=== PATIENT | female | born 1970 | race Caucasian/White ===

== ENCOUNTER → 2020-02-27 09:13 | Outpatient (CLI) | payer BC, SELFPAY ==
--- NOTE | ~2020-02-27 | MM_ITS ---
EXAMINATION: MM screen LT diag RT w levi HISTORY: Follow-up breast asymmetries TECHNIQUE: Additional 3-D tomosynthesis images of right were performed and synthetic 2-D images were generated. Screening left mammogram. CAD analysis was submitted and interpreted. COMPARISON: Comparison to multiple prior studies sequentially, with oldest reviewed study dated 09/29. BREAST PARENCHYMAL COMPOSITION: The breasts are extremely dense, which lowers the sensitivity of mamm ography. FINDINGS: There are no suspicious masses, calcifications or architectural distortion in either breast to suggest malignancy. IMPRESSION: 1. No mammographic evidence for malignancy in either breast. 2. Routine yearly screening mammogram and regular clinical breast examination are recommended. BI-RADS Category 1: Negative Reviewed, dictated and finalized at location A. IMPRESSION: 1. No mammographic evidence for malignancy in either breast. 2. Routine yearly screening mammogram and regular clinical breast examination a re recommended. BI-RADS Category 1: Negative
== END ==
PROVIDERS: Visit Provider Obstetrics & Gynecology Gynecology
DX: R92.8 Other abnormal and inconclusive findings on diagnostic imaging of breast (principal); Z12.31 Encounter for screening mammogram for malignant neoplasm of breast
CPT/HCPCS: 77063; 77065; 77067

== ENCOUNTER → 2020-10-21 07:53 | Outpatient (CLI) | payer BC, SELFPAY ==
--- NOTE | ~2020-10-21 | MMUS_ITS ---
EXAMINATION: MM diagnostic branden LT w levi, US breast LT complete HISTORY: 1 cm lump at 7:00 TECHNIQUE: ML, MLO and craniocaudal full field and spot 3-D tomosynthesis images of the left breast w ere performed and synthetic 2-D images were generated. CAD analysis was submitted and interpreted. Hi gh resolution complete left breast ultrasound was performed. COMPARISON: 05/03/2019 bilateral digital screening mammogram BREAST PARENCHYMAL COMPOSITION: The breasts are heterogeneously dense, which may obscure small masses . FINDINGS: MAMMOGRAPHIC FINDINGS: Approximately 3.9 x 8.4 mm opacity is suggested posteriorly in the inner aspect of the mid medial lef t breast at approximately 2:00 position. ULTRASOUND: At the area of clinical complaint of palpable lump at 7:00 5 cm from the nipple there is a parallel c ircumscribed irregular 4 x 9 x 11 mm heterogeneous complex lesion without suspicious shadowing or int ernal vascularity. 7:00 6 cm from nipple: 2.4 x 2.9 mm cyst with through transmission and posterior enhancement 2:00 9 cm from nipple: 2.9 x 5.4 x 4.5 mm parallel circumscribed mildly irregular hypoechoic lesion w ithout internal vascularity or suspicious shadowing, likely corresponding to above described mammogra phic opacity. 2:00 3 cm from nipple: Parallel circumscribed 3.2 x 8.4 x 6 mm hypoechoic lesion without internal vas cularity or posterior shadowing 2:00 2 cm from nipple: 2.6 x 2.5 x 3.3 mm sonolucency with through transmission, likely a small cyst IMPRESSION: 1. Lesions with irregular outline at 7:00 5 cm from the nipple (corresponding to the complaint of pal pable mass) and at 2:00 9 cm from the nipple 2. Ultrasound-guided biopsy is recommended at the 7:00 5 cm from nipple lesion and 2:00 9 cm from nip ple lesion BI-RADS category 4, suspicious findings. Dr. Bear telephoned the report and ultrasound guided biopsy recommendations to GLADYS Delarosa on 10/22/19 21 at 0930 hours Reviewed, dictated and finalized at location A. IMPRESSION: 1. Lesions with irregular outline at 7:00 5 cm from the nipple (corresponding t o the complaint of palpable mass) and at 2:00 9 cm from the nipple 2. Ultrasound-guided biopsy is recommended at the 7:00 5 cm from nipple lesion and 2:00 9 cm from nipple lesion BI-RADS category 4, suspicious findings. Dr. Bear telephoned the report and ultrasound guided biopsy recommendations to GLADYS Delarosa on 10/21/2020 at 0930 hours
== END ==
PROVIDERS: Visit Provider Obstetrics & Gynecology Gynecology
DX: R92.8 Other abnormal and inconclusive findings on diagnostic imaging of breast (principal)
CPT/HCPCS: 76641; 77061; 77065; G0279

== ENCOUNTER 2020-10-24 14:27 | Outpatient (CLI) | payer BC, SELFPAY ==
--- NOTE | 2020-10-24 14:47 | ECHO_ITS ---
Patient Info Name: Ligia Larsen Age: 50 years : 1970 Gender: Female Ht: 64 in Wt: 140 lbs BSA: 1.70 m2 HR: 69 bpm BP: 146 / 94 mmHg Technical Quality: Good Exam Date: 10/24/2020 2:50 PM Exam Location: [facility] Patient Status: Outpatient Admit Date: 10/24/2020 Staff Ordering Physician: Sidney Holman MD Windmill Technician: Mel Liriano RDCS Attending Provider: Sidney Holman MD Referring Physician: River MORRELL; Exam Type: CA echo doppler color flow Study Info Indications R01.1 - Cardiac murmur, unspecified Complete two-dimensional, color flow and Doppler transthoracic echocardiogram is performed. Summary 1. Complete two-dimensional, color flow and Doppler transthoracic echocardiogram is performed. 2. Left ventricular chamber dimension is normal. 3. Left ventricular systolic function is normal, estimated at 65-70%. 4. The left ventricular diastolic function is normal. 5. E/e' 8 is minimally elevated. 6. Global longitudinal strain is normal at -18.8%. 7. Left atrial chamber dimension is mildly enlarged. 8. There is trace aortic valve regurgitation. 9. There is trace mitral valve regurgitation. 10. There is trace tricuspid valve regurgitation. 11. No pulmonary hypertension, estimated pulmonary arterial systolic pressure is 29 mmHg. 12. There is trace pulmonic regurgitation. Left Ventricle E/e' 8 is minimally elevated. Global longitudinal strain is normal at -18.8%. Left ventricular chamber dimension is normal. Left ventricular systolic function is normal, estimated at 65-70%. The left ventricular diastolic function is normal. Right Ventricle Right ventricular chamber dimension is normal. Right ventricular systolic function is normal. Left Atria Left atrial chamber dimension is mildly enlarged. Right Atria Right atrial chamber dimension is normal. Aortic Valve The aortic valve is trileaflet. There is no aortic valve stenosis. There is trace aortic valve regurgitation. Pulmonic Valve There is trace pulmonic regurgitation. Mitral Valve There is no mitral valve stenosis. There is trace mitral valve regurgitation. Tricuspid Valve There is trace tricuspid valve regurgitation. No pulmonary hypertension, estimated pulmonary arterial systolic pressure is 29 mmHg. Pericardium/Pleural There is no pericardial effusion. Inferior Vena Cava Normal inferior vena cava with >50% collapse upon inspiration consistent with normal right atrial pressure, 5 mmHg. Aorta The aortic root size at the sinus of Valsalva is normal. Left Ventricular Outflow Tract Name Value Normal LVOT 2D LVOT Diameter 1.9 cm LVOT Doppler LVOT Peak Gradient 6 mmHg LVOT Mean Gradient 4 mmHg LVOT VTI 27 cm LVOT VTI/AV VTI Ratio 0.8 LVOT Stroke Volume 75 ml LVOT CO 5.4 l/min LVOT CI 3.2 l/min/m2 Pulmonic Valve
== END 2020-10-24 14:28 | disposition home or self-care (01) ==
PROVIDERS: PCP Family Medicine; Visit Provider Family Medicine
DX: R01.1 Cardiac murmur, unspecified (principal)
CPT/HCPCS: 93306

== ENCOUNTER → 2022-01-01 13:49 | Outpatient (CLI) | payer BC, SELFPAY ==
--- NOTE | ~2022-01-01 | MM_ITS ---
EXAMINATION: MM screening branden BI w levi HISTORY: Screening TECHNIQUE: Craniocaudal and mediolateral oblique 3-D tomosynthesis images were obtained and synthetic 2-D images were generated. CAD analysis was submitted and interpreted. COMPARISON: Comparison to multiple prior studies sequentially, with oldest reviewed study dated 12/15. BREAST PARENCHYMAL COMPOSITION: The breasts are extremely dense, which lowers the sensitivity of mamm ography FINDINGS: There is no evidence of suspicious mass, calcification, or architectural distortion to sugg est malignancy in either breast. There has been no suspicious interval change. IMPRESSION: 1. No mammographic evidence of malignancy. 2. Recommend routine screening mammography in one year. BI-RADS Category 1: Negative Reviewed, dictated and finalized at location A.
== END ==
PROVIDERS: PCP Family Medicine; Visit Provider Obstetrics & Gynecology Gynecology
DX: Z12.31 Encounter for screening mammogram for malignant neoplasm of breast (principal)
CPT/HCPCS: 77063; 77067

== ENCOUNTER 2022-04-28 12:09 | Outpatient (CLI) | payer BC, SELFPAY ==
--- NOTE | ~2022-04-28 | MR_ITS ---
MR breast BI wo/w con 04/28/2022 15:58 CDT INDICATION: Extremely dense breast tissue TECHNIQUE: MRI of the breasts perform using standard protocol pre-and post IV contrast with the follo wing sequences: Axial T2 STIR, axial T1, axial vibrant T1 with fat suppression precontrast and multip hasic postcontrast. 13 cc of MultiHance administered intravenously. COMPARISON: Comparison to multiple prior studies sequentially, with oldest reviewed study dated 02/26. FINDINGS: There are no abnormalities on the precontrast sequences. There is moderate background paren chymal enhancement. No enhancing lesions following contrast administration. No areas of enhancement meeting threshold criteria on CAD analysis. No evidence of signal abnormalities in the axillary or internal mammary node distributions. LEFT BREAST: No signal abnormalities on precontrast sequences. There is moderate background parenchy mal enhancement. No enhancing lesions following contrast administration. No areas of enhancement m eeting threshold criteria on CAD analysis. No evidence of signal abnormalities in the axillary or i nternal mammary node distributions.] IMPRESSION: 1: Right breast: Negative. No evidence of malignancy. BI-RADS category 1. Recommend annual mammo graphy follow-up. 2: Left breast: Negative. No evidence of malignancy. BI-RADS category 1. Recommend annual mammogr aphy follow-up. Follow-up MRI may be useful for supplementing mammographic evaluation as clinically indicated. Reviewed, dictated and finalized at location A. IMPRESSION: 1: Right breast: Negative. No evidence of malignancy. BI-RADS category 1. Recommend annual mammography follow-up. 2: Left breast: Negative. No evidence of malignancy. BI-RADS category 1. Re commend annual mammography follow-up. Follow-up MRI may be useful for supplementing mammographic evaluation as clinic ally indicated.
== END 2022-04-28 12:10 | disposition home or self-care (01) ==
PROVIDERS: PCP Family Medicine; Visit Provider Obstetrics & Gynecology Gynecology
DX: R92.2 Inconclusive mammogram (principal)
CPT/HCPCS: 77049; A9577; C8908

== ENCOUNTER → 2022-06-17 13:21 | Outpatient (CLI) | payer BC, SELFPAY ==
--- NOTE | ~2022-06-17 | DEXA_ITS ---
Bone Density Report Name: ERROL ALEXIS Age: 52 Sex: Female Ethnicity: White Date of : 1970 Indication: postmenopausal; screening for osteoporosis; hysterectomy; Referring Provider: LIANA TESFAYE Study: Bone densitometry was performed. Exam Date: June 17, 2022 Accession number: [id number] Bone Density: Region BMD T-score Z-score Classification AP Spine (L1-L4) 1.210 1.5 2.2 Normal Femoral Neck (Left) 0.669 -1.6 -0.9 Osteopenia Total Hip (Left) 0.889 -0.4 0.0 Normal Femoral Neck (Right) 0.663 -1.7 -0.9 Osteopenia Total Hip (Right) 0.821 -1.0 -0.5 Normal Total Hip Mean 0.855 -0.7 -0.3 Normal World Health Organization criteria for BMD impression classify patients as: Normal (T-score at or above -1.0), Osteopenia (T-score between -1.0 and -2.5), or Osteoporosis (T-score at or below -2.5). 10-year Fracture Risk(1): Major Osteoporotic Fracture 4.8% Hip Fracture 0.4% Reported Risk Factors: [place] (), Neck BMD=0.663, BMI=25.8 (1) FRAX(R) Version 3.08. Fracture probability calculated for an untreated patient. Fracture probability may be lower if the patient has received treatment. Clinical Information Provided by Patient: Has used the following medications: Vitamin D, MULTI VITAMIN Has the following medical conditions: Hysterectomy Patient maximum height was 64.5 Menopause Age: 29 Does not regularly consume dairy products Drinks caffeinated beverages Onset of menses at age 14 Number of children 2 Impression: The patient has low bone mass, based on the Right Femoral Neck T-score. The patient has an estimated ten-year risk of hip fracture of 0.4% and an estimated ten-year risk of major fracture of 4.8%, based on the WHO FRAX algorithm. Discussion: BONE DENSITY IS LOW AT ONE OR MORE SKELETAL SITES. This patient's lowest T-score is low at one or more skeletal sites. It meets the World Health Organization's (WHO) criteria for ?low bone mass? (T-score between -1.0 and -2.5). The patient's 10-year risk of fracture as calculated by FRAX is less than the threshold where pharmacological therapy is recommended by the National Osteoporosis Foundation (NOF). However, all treatment decisions require clinical judgment and consideration of individual patient factors, including patient preferences, comorbidities, previous drug use, risk factors not captured in the FRAX model (e.g., frailty, falls, vitamin D deficiency, increased bone turnover, interval significant decline in bone density) and possible under or overestimation of fracture risk by FRAX. The patient should follow a healthful lifestyle (good nutrition with adequate calcium and vitamin D, and appropriate weight-bearing exercise). Follow-Up: Consider repeating this study in 2 to 3 years to reassess this patient's status, or
== END ==
PROVIDERS: PCP Family Medicine; Visit Provider Obstetrics & Gynecology Gynecology
DX: Z78.0 Asymptomatic menopausal state (principal); M85.852 Other specified disorders of bone density and structure, left thigh; M85.851 Other specified disorders of bone density and structure, right thigh
CPT/HCPCS: 77080

== ENCOUNTER 2022-12-04 01:43 | Day surgery (SDC) | payer BC, SELFPAY ==
[2022-11-20 11:46] VITALS: BMI 23.4
[2022-12-04 07:15] VITALS: BP 158/92; PULSE 66; RESP 18; TEMP 36.5; O2SAT 100; BMI 24.8
[2022-12-04] MEDS: LACTATED RINGERS 1,000 ML 150 ML IV CONT (07:27)
--- NOTE | 2022-12-04 07:50 | PM.HPGS ---
History of Present Illness History of Present Illness Consent: Risks, benefits, and alternatives have been discussed and questions answered. Patient agrees to proceed with procedure. Chief complaint: neoplasm screening Narrative: Ligia Larsen is a 52 year old female Presents for screening colonoscopy. Patient's current weight appetite and bowel movements are normal. Patient denies abdominal pain. She has had no bleeding. Family history is noncontributory. Review of Systems Review of Systems: Review of systems noncontributory. 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 Family History Family History (Updated 04/06/19 @ 08:17 by DOCTOR UNKNOWN) Mother Hypertension Family history of hypercholesterolemia Cerebrovascular accident Family history of atrial fibrillation Father Hypertension Family history of hypercholesterolemia Grandparent Family history of malignant neoplasm of bone Family history of malignant neoplasm of breast Diabetes mellitus, Onset Age: 68 Hypertension Acute myocardial infarction, Onset Age: 42 Family history of malignant neoplasm Social History Social History Smoking status: Never smoker Alcohol intake: current Drinks per week: 3 Alcohol use details: on occasion Substance use: never Substance use type: does not use Living arrangements: with family Spiritual care concerns: No Meds Home Medications and Allergies Home Medications Medication Instructions Recorded Confirmed Type ketoconazole 2 % topical cream 1 applic topical BID #30 grams 09/16/21 12/04/22 Rx fluticasone propionate 50 1 spray intranasal BID 10/16/21 12/04/22 History mcg/actuation nasal spray,suspension amlodipine 5 mg tablet 5 mg PO DAILY #90 tabs 12/04/21 12/04/22 Rx escitalopram oxalate 10 mg tablet 10 mg PO DAILY #30 tabs 04/30/22 12/04/22 Rx (Lexapro) cholecalciferol (vitamin D3) 1,250 50,000 unit PO WEEKLY #4 caps 10/16/22 12/04/22 Rx mcg (50,000 unit) capsule Women's Multivitamin 1 tab-cap PO DAILY 11/20/22 12/04/22 History Allergies Allergy/AdvReac Type Severity Reaction Status Date / Time terbinafine Allergy Mild urinary Verified 12/04/22 07:13 issues, nausea Vital Signs Vital Signs - 24 hr 12/04/22 07:15 Temperature 97.7 F Pulse Rate 66 Respiratory Rate 18 Blood Pressure 158/92 H Pulse Oximetry 100 Oxygen Delivery Room Air Exam Narrative: Physical exam reveals patient to be alert. Vital signs stable. HEENT exam is unremarkable. Patient is anicteric. Lungs are clear to auscultation and percussion. Heart is without murmur or extra sounds. Abdomen bowel sounds are present soft nontender with no organomegaly. Digital external rectal exam is normal. Assessment and Plan Assessment and plan (1) Colon cancer screening: Code(s): Z12.11 - Encounter for screening for malignant neoplasm of colon Status: Acute Assessment and Plan: Patient presents for screening colonoscopy. She appears to be at average risk for colon polyps. Further recommendations may be given after endoscopy.
--- NOTE | 2022-12-04 08:13 | WPDANESEPPF ---
Anes - Initial Pre Proc Eval Procedure: Operation Date: 12/04/22 08:30 Proposed Procedures p Screening Colonoscopy - Damián Chan MD Date/Time: 12/04/22 08:13 Surgeon: Damián Chan MD Pre Op Diagnosis: neoplasm screening Patient Data Age: 52 Gender: F Height: 1.65 m Weight: 67.7 kg Last Vital Signs Temp 97.7 F 12/04/22 07:15 Pulse 66 12/04/22 07:15 Resp 18 12/04/22 07:15 BP 158/92 H 12/04/22 07:15 Pulse Ox 100 12/04/22 07:15 O2 Del Method Room Air 12/04/22 07:15 Allergies Allergy/AdvReac Type Severity Reaction Status Date / Time terbinafine Allergy Mild urinary Verified 12/04/22 07:13 issues, nausea Home Medications Medication Instructions Recorded Confirmed Type ketoconazole 2 % topical cream 1 applic topical BID #30 grams 09/16/21 12/04/22 Rx fluticasone propionate 50 1 spray intranasal BID 10/16/21 12/04/22 History mcg/actuation nasal spray,suspension amlodipine 5 mg tablet 5 mg PO DAILY #90 tabs 12/04/21 12/04/22 Rx escitalopram oxalate 10 mg tablet 10 mg PO DAILY #30 tabs 04/30/22 12/04/22 Rx (Lexapro) cholecalciferol (vitamin D3) 1,250 50,000 unit PO WEEKLY #4 caps 10/16/22 12/04/22 Rx mcg (50,000 unit) capsule Women's Multivitamin 1 tab-cap PO DAILY 11/20/22 12/04/22 History Patient hx anesthesia problems: none Family hx anesthesia problems: none Results Review: All pre-operative results and documents have been reviewed as part of the pre-operative evaluation. 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 Family History Family History (Updated 04/06/19 @ 08:17 by DOCTOR UNKNOWN) Mother Hypertension Family history of hypercholesterolemia Cerebrovascular accident Family history of atrial fibrillation Father Hypertension Family history of hypercholesterolemia Grandparent Family history of malignant neoplasm of bone Family history of malignant neoplasm of breast Diabetes mellitus, Onset Age: 68 Hypertension Acute myocardial infarction, Onset Age: 42 Family history of malignant neoplasm Social History Social History Smoking status: Never smoker Alcohol intake: current Drinks per week: 3 Alcohol use details: on occasion Substance use: never Substance use type: does not use Living arrangements: with family Spiritual care concerns: No Anes - Eval Final PreProcedure Day of Procedure 12/04/22 08:13 Patient weight: normal Heart: regular rate and rhythm Lungs: clear to auscultation Airway: Mallampati scale class II Neurological: alert and oriented Last oral intake: >/= 8 hours ASA classification: II Emergent: no Anesthetic plan: proceed Anesthesia type and monitoring: general GIVS and standard monitoring Results Review: All pre-operative results and documents have been reviewed as part of the pre-operative evaluation. Informed Consent: The patient's anesthetic plan and its attendant risks and benefits were discussed with the patient/family/POA. Questions were solicited and answers provided to the satisfaction of the patient/family/POA.
--- NOTE | 2022-12-04 08:24 | WPDANESEPPF ---
Anes - Initial Pre Proc Eval Procedure: Operation Date: 12/04/22 08:30 Proposed Procedures p Screening Colonoscopy - Damián Chan MD Date/Time: 12/04/22 08:24 Surgeon: Damián Chan MD Pre Op Diagnosis: neoplasm screening Patient Data Age: 52 Gender: F Height: 1.65 m Weight: 67.7 kg Last Vital Signs Temp 97.7 F 12/04/22 07:15 Pulse 66 12/04/22 07:15 Resp 18 12/04/22 07:15 BP 158/92 H 12/04/22 07:15 Pulse Ox 100 12/04/22 07:15 O2 Del Method Room Air 12/04/22 07:15 Allergies Allergy/AdvReac Type Severity Reaction Status Date / Time terbinafine Allergy Mild urinary Verified 12/04/22 07:13 issues, nausea Home Medications Medication Instructions Recorded Confirmed Type ketoconazole 2 % topical cream 1 applic topical BID #30 grams 09/16/21 12/04/22 Rx fluticasone propionate 50 1 spray intranasal BID 10/16/21 12/04/22 History mcg/actuation nasal spray,suspension amlodipine 5 mg tablet 5 mg PO DAILY #90 tabs 12/04/21 12/04/22 Rx escitalopram oxalate 10 mg tablet 10 mg PO DAILY #30 tabs 04/30/22 12/04/22 Rx (Lexapro) cholecalciferol (vitamin D3) 1,250 50,000 unit PO WEEKLY #4 caps 10/16/22 12/04/22 Rx mcg (50,000 unit) capsule Women's Multivitamin 1 tab-cap PO DAILY 11/20/22 12/04/22 History Patient hx anesthesia problems: none Family hx anesthesia problems: none Results Review: All pre-operative results and documents have been reviewed as part of the pre-operative evaluation. 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 Family History Family History (Updated 04/06/19 @ 08:17 by DOCTOR UNKNOWN) Mother Hypertension Family history of hypercholesterolemia Cerebrovascular accident Family history of atrial fibrillation Father Hypertension Family history of hypercholesterolemia Grandparent Family history of malignant neoplasm of bone Family history of malignant neoplasm of breast Diabetes mellitus, Onset Age: 68 Hypertension Acute myocardial infarction, Onset Age: 42 Family history of malignant neoplasm Social History Social History Smoking status: Never smoker Alcohol intake: current Drinks per week: 3 Alcohol use details: on occasion Substance use: never Substance use type: does not use Living arrangements: with family Spiritual care concerns: No Anes - Eval Final PreProcedure Day of Procedure 12/04/22 08:24 Patient weight: normal Heart: regular rate and rhythm Lungs: clear to auscultation Airway: Mallampati scale class II Neurological: alert and oriented Last oral intake: >/= 8 hours ASA classification: II Emergent: no Anesthetic plan: proceed Anesthesia type and monitoring: general GIVS and standard monitoring Results Review: All pre-operative results and documents have been reviewed as part of the pre-operative evaluation. Informed Consent: The patient's anesthetic plan and its attendant risks and benefits were discussed with the patient/family/POA. Questions were solicited and answers provided to the satisfaction of the patient/family/POA.
[2022-12-04] MEDS: SIMETHICONE ORAL SUSPENSION 20 MG/0.3 ML 30 ML BOTTLE 0.6 ML IRRIGATION (08:51)
[2022-12-04 09:02] VITALS: BP 98/66; PULSE 64; RESP 16; O2SAT 100
[2022-12-04 09:12] VITALS: BP 135/77; PULSE 66; RESP 18; O2SAT 100
[2022-12-04 09:22] VITALS: BP 148/86; PULSE 62; RESP 18; O2SAT 99
== END 2022-12-04 09:30 | disposition home or self-care (01) ==
PROVIDERS: PCP Family Medicine; Visit Provider Internal Medicine Gastroenterology
PROC: 0DJD8ZZ Inspection of Lower Intestinal Tract, Via Natural or Artificial Opening Endoscopic (ICD-10-PCS; CPT 45378; principal; 2022-12-04 08:30)
DX: Z12.11 Encounter for screening for malignant neoplasm of colon (principal); D12.5 Benign neoplasm of sigmoid colon; K57.30 Diverticulosis of large intestine without perforation or abscess without bleeding; K64.8 Other hemorrhoids; E53.8 Deficiency of other specified B group vitamins; R01.1 Cardiac murmur, unspecified; F41.9 Anxiety disorder, unspecified; F32.A Depression, unspecified
CPT/HCPCS: 45385; 88305; J2704; J7120

== ENCOUNTER 2023-07-14 16:16 | Outpatient (CLI) | payer BC, SELFPAY ==
--- NOTE | ~2023-07-14 | MM_ITS ---
EXAMINATION: MM screening branden BI w levi HISTORY: Screening mammogram TECHNIQUE: Craniocaudal, rotated lateral craniocaudal and mediolateral oblique 3-D tomosynthesis imag es were obtained and synthetic 2-D images were generated. Bilateral rotated lateral CC views. CAD anibal lysis was submitted and interpreted. COMPARISON: 04/28/2022 MR breast examination, reported negative 6. I bilateral screening mammogram 10/21/2020 diagnostic left mammogram and complete left breast ultrasound examination 02/27/2020 diagnostic left mammogram 05/15/2019 diagnostic right mammogram and limited right breast ultrasound examination 05/03/2019 bilateral screening mammogram BREAST PARENCHYMAL COMPOSITION: The breasts are heterogeneously dense, which may obscure small masses . FINDINGS: Biopsy marker is noted on each side; history of prior bilateral benign breast biopsies. The re is no evidence of suspicious mass, calcification, or architectural distortion to suggest malignanc y in either breast. There has been no suspicious interval change. IMPRESSION: 1. No mammographic evidence of malignancy. 2. Recommend routine screening mammography in one year. BI-RADS Category 1: Negative Reviewed, dictated and finalized at location A. NCIAL PROCESSING CLERK
== END 2023-07-14 16:17 | disposition home or self-care (01) ==
LOC: ANHIMG 16:21
PROVIDERS: PCP Family Medicine; Visit Provider Obstetrics & Gynecology Gynecology
DX: Z12.31 Encounter for screening mammogram for malignant neoplasm of breast (principal)
CPT/HCPCS: 77063; 77067

== ENCOUNTER 2024-07-26 13:39 | Outpatient (CLI) | payer BC, SELFPAY ==
--- NOTE | ~2024-07-26 | MM_ITS ---
EXAMINATION: MM screening branden BI w levi HISTORY: Screening TECHNIQUE: Craniocaudal and mediolateral oblique 3-D tomosynthesis images were obtained and synthetic 2-D images were generated. CAD analysis was submitted and interpreted. COMPARISON: Comparison to multiple prior studies sequentially, with oldest reviewed study dated 04/18. BREAST PARENCHYMAL COMPOSITION: Dense: The breasts are heterogeneously dense, which may obscure small masses FINDINGS: There is no evidence of suspicious mass, calcification, or architectural distortion to sugg est malignancy in either breast. There has been no suspicious interval change. IMPRESSION: 1. No mammographic evidence of malignancy. 2. Recommend routine screening mammography in one year. BI-RADS Category 1: Negative Reviewed, dictated and finalized at location B. IFICATION WRITER
== END 2024-07-26 13:40 | disposition home or self-care (01) ==
LOC: CHSIMG 13:42
PROVIDERS: PCP Family Medicine; Visit Provider Obstetrics & Gynecology Gynecology
DX: Z12.31 Encounter for screening mammogram for malignant neoplasm of breast (principal)
CPT/HCPCS: 77063; 77067

== ENCOUNTER 2025-02-09 14:34 | Outpatient (CLI) | payer BC, SELFPAY ==
--- NOTE | ~2025-02-09 | MR_ITS ---
MRI of the right ankle Clinical history: Plantar fasciitis Technique: Coronal proton-density and proton-density fat-sat images, axial proton-density and proton- density fat-sat images, and sagittal proton-density and proton-density fat-sat images were acquired. Findings: Syndesmotic ligaments are intact. Anterior and posterior talofibular ligaments, and calcane ofibular ligament appear intact. Deltoid ligament intact. Medial flexor tendons, peroneus longus tendon, anterior extensor tendons, and Achilles tendon are int act. Questionable longitudinal split tear focally of the peroneus brevis tendon at the level of the l ateral malleolus tip. There is no osteochondral lesion of the talar dome. Bone marrow signals and joint spaces are intact. There is a small to moderate tibiotalar joint effusion, nonspecific. There is focal tear of the origin of the plantar fascia at the calcaneal origin site, surrounding sof t tissue edema and thickening. Impression: Plantar fasciitis, as detailed above. There is prominent soft tissue edema about the origin of the pl vianca fascia with focal tearing centrally. Questionable focal longitudinal split tear of the peroneus brevis tendon. Reviewed, dictated and finalized at location . Impression: Plantar fasciitis, as detailed above. There is prominent soft tissue edema abou t the origin of the plantar fascia with focal tearing centrally. Questionable focal longitudinal split tear of the peroneus brevis tendon.
== END 2025-02-09 14:35 | disposition home or self-care (01) ==
PROVIDERS: PCP Family Medicine; Visit Provider Podiatrist Foot & Ankle Surgery
DX: M72.2 Plantar fascial fibromatosis (principal)
CPT/HCPCS: 73721

== ENCOUNTER 2025-04-27 02:39 | Day surgery (SDC) | payer BC, SELFPAY ==
[2025-04-20 14:12] VITALS: BMI 25.7
--- NOTE | 2025-04-20 14:13 | SUR.PREOP ---
[facility] has started construction of its new state of the art ER which will open Spring 2026. With this, we anticipate parking may be a challenge for some our surgical patients and families. Parking spaces are limited but are available for all Surgical, obstetrics, and ER patients sharing this lot. If you arrive and find you are having a hard time finding a parking space, please note that we understand the challenges, please drive around the hospital and park near Hospital Entrance 1. When you enter this entrance, you can ask a volunteer to direct or take you back to the surgical waiting area to check in. We appreciate everyone?s understanding of these expected challenges while we build for your future. Report to the Outpatient Waiting Room, entrance under the green pavilion located off [address], at time _930am on date _04/27/25 . Planned Procedure Time: __1130 .? Time changes happen often and if your time is changed the preop area will call you the afternoon before. - You and your visitor will be asked to self-screen and do not enter if you have any COVID symptoms. Please call surgeon if you need to reschedule. - A mask is optional within the hospital at this time. Patients may have clear liquids (water, carbonated beverages, clear teas, apple juice) until 3 hours prior to surgery with a maximum of 20 ounces. - No food from midnight until time of surgery and no smoking, or chewing tobacco (or any form of nicotine). No chewing gum, candy or mints. - Infants may have breast milk until 4 hours before surgery, formula 6 hours prior to surgery. - Children will be allowed to drink immediately following surgery.? If applicable, please bring a bottle or sippy cup to assist with drinking. Juice, water, soda, and popsicles are readily available.? For infants on formula, please bring formula the day of surgery.? Pacifiers are allowed. Take only the following medications with a SIP of water on the morning of surgery: _Amlodipine DO NOT STOP ANY OF YOUR OTHER PRESCRIPTION MEDICATIONS PRIOR TO SURGERY EXCEPT THE FOLLOWING Hold all vitamins and supplements for 3 days per anesthesiologist. Medications to discontinue per physician . Date to take last dose___N/a____. Please no make-up, nail jordanian, hairspray, perfume, deodorant, or body powder the day of surgery.? No jewelry (including any body piercings) or valuables the day of surgery, leave them at home.? Please take a shower or bath the night before, or the morning of, surgery with an antibacterial soap.? Wear comfortable, loose fitting clothing.? Children are encouraged to wear pajamas. - Jewelry must be removed prior to entering the operating room.? Rings and piercings that are not removed may be cut off. - The hospital will not accept responsibility for valuables.? - Please leave all valuables, including medications, at home the day of surgery. If you are going home after surgery, a licensed car pick up driver must drive you home.? - NO public transportation without another adult if you receive anesthesia. - We recommend that an adult stay with you for 24 hours following discharge. - We also recommend that you do not drive, make important decision, drink alcoholic beverages, or take any drugs that were not prescribed by your health care provider for at least 24 hours after your discharge time. For Pediatric surgeries, we recommend two adults accompany the child home. Follow any additional instructions given to you from your surgeon. Telephone instructions given to __Ligia and asked if any additional questions and then verbalized understanding. Patient advised to call surgeon office or pre surgery nurse liaison [phone] if any additional questions.
--- NOTE | 2025-04-27 07:18 | WPDHPUPDATE1 ---
History and Physical Update Update Date/Time: 04/27/25 07:18 History and Physical has been reviewed, including an updated exam of the patient. There are NO changes in the patient's condition. Risks, benefits, and alternatives have been discussed and questions answered. Patient agrees to proceed with procedure.
[2025-04-27 09:35] VITALS: BP 156/88; PULSE 72; RESP 16; TEMP 37.2; O2SAT 100
[2025-04-27] MEDS: LACTATED RINGERS 1,000 ML 30 ML IV CONT (10:00)
[2025-04-27] MEDS: MIDAZOLAM HCL (*CRX) 2 MG/2 ML VIAL IV PUSH (10:07)
--- NOTE | 2025-04-27 11:13 | P.PNAN_ITS ---
Anes - Initial Pre Proc Eval Procedure: Operation Date: 04/27/25 11:30 Proposed Procedures p Partial Plantar Fasciectomy Right Foot - Carmine Newman Jr., DPM Date/Time: 04/27/25 11:13 Surgeon: Carmine Newman Jr., DPM Pre Op Diagnosis: Plantar Fasciitis Right Foot Patient Data Age: 55 Gender: F Height: 1.63 m Weight: 68.1 kg Allergies Allergy/AdvReac Type Severity Reaction Status Date / Time terbinafine Allergy Mild urinary Verified 04/20/25 14:03 issues, nausea Home Medications ?Medication ?Instructions ?Recorded ?Confirmed ?Type fluticasone propionate 50 1 spray intranasal BID 10/1604/20/25 History mcg/actuation nasal spray,suspension Women's Multivitamin 1 tab-cap PO DAILY 11/20/22 04/20/25 History ergocalciferol (vitamin D2) 1,250 50,000 unit PO WEEKL Y #36 caps 08/01/24 04/20/25 Rx mcg (50,000 unit) capsule (Vitamin D2) amlodipine 10 mg tablet (Norvasc) 5 mg (1/2 x 10 mg) P O DAILY #90 09/25/24 04/20/25 Rx tabs ketoconazole 2 % topical cream 1 applic topical BID #3 0 grams 10/09/24 04/20/25 Rx losartan 25 mg tablet 25 mg PO DAILY #30 tabs 07/02/0904/20/25 Rx oxycodone-acetaminophen 5 mg-325 1 tablet PO Q6H PRN p ain #20 tabs 04/17/25 Rx mg tablet (Percocet) Patient hx anesthesia problems: none Family hx anesthesia problems: none Results Review: All pre-operative results and documents have been reviewed as part of the pre- operative evaluation. [facility] Past Medical History Medical History (Updated 04/17/25 @ 17:10 by Carmine Newman Jr., DPM) Localized hives Nasal congestion BMI 26.0-26.9,adult Breast cancer screening by mammogram normal mammogram 07/14/2023. normal mammogram 07/26/2024. Polyp of colon (12/04/22) sessile polyp , tubular adenoma, distal sigmoid colon on initial screening colonoscopy 12/04/2022. recheck in 5 years. 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 Surgical History Surgical History (Updated 04/26/25 @ 15:44 by Paul Madison DO) History of hysterectomy Family History Family History Mother Hypertension Family history of hypercholesterolemia Cerebrovascular accident Family history of atrial fibrillation Father Hypertension Family history of hypercholesterolemia Grandparent Family history of malignant neoplasm of bone Family history of malignant neoplasm of breast Diabetes mellitus, Onset Age: 68 Hypertension Acute myocardial infarction, Onset Age: 42 Family history of malignant neoplasm Social History Social History Smoking status: Never smoker Alcohol intake: current Drinks per week: 3 Alcohol use details: on occasion Substance use: never Substance use type: does not use Living arrangements: with family Spiritual care concerns: No Anes - Eval Final PreProcedure Day of Procedure 04/27/25 11:13 Patient weight: overweight Heart: regular rate and rhythm Lungs: clear to auscultation Airway: Mallampati scale class II Neurological: alert and oriented Last oral intake: >/= 8 hours ASA classification: II Emergent: no Anesthetic plan: proceed Anesthesia type and monitoring: general GIVS and standard monitoring Results Review: All pre-operative results and documents have been reviewed as part of the pre- operative evaluation. Informed Consent: The patient's anesthetic plan and its attendant risks and benefits were discussed with the patient/family/POA. Questions were solicited and answers provided to the satisfaction of the patient/family/POA.
[2025-04-27] MEDS: ceFAZolin 2 GM in SODIUM CHLORIDE 0.9% IV 50 ML 100 ML IVPB (11:31)
[2025-04-27] MEDS: LIDOCAINE 2% LOCAL INJ 20 ML VIAL 10 ML INFILTRATE (11:51)
[2025-04-27] MEDS: BUPivacaine HCL 0.5% 10 ML AMP INFILTRATE (11:52)
--- NOTE | 2025-04-27 12:10 | P.OP_ITS ---
Procedure Note - Detailed Date of Procedure 04/27/25 Pre-op Diagnosis Plantar Fasciitis Right Foot Post-op Diagnosis Same Procedure Performed Partial plantar fasciectomy right foot Surgeon Carmine Newman Jr., DPM Anesthesia MAC and Local Indications Painful right heel Findings Narrow thick plantar fascia Description of Procedure Under mild sedation, the patient was brought in to the operating room, placed on the operating table in the supine position. A pneumatic ankle tourniquet was placed about the patient's ankle. Following general anesthesia, local anesthesia was obtained about the affected lower extremity utilizing 20 mL of a one to mix of 2% Lidocaine plain and 0.5% Marcaine plain to the tibial nerve. The foot was then scrubbed, prepped, and draped in the usual aseptic manner. An Esmarch bandage was then used to exsanguinate the patient's foot and the pneumatic ankle tourniquet was then inflated. Next, an incision was made starting distal to the medial tubercle of the calcaneus extending distally 3cm. All bleeders were cauterized as necessary. Next the dissection was continued down to the plantar fascia it was exposed medially and laterally with [place] retractors. Two thirds of the medial plantar fascia was transected and a 4mm portion was also cut and discarded. The wound site was flushed with sterile saline. The deep subcutaneous tissue was reapproximated with 3.0 Vicryl and the skin was reapproximated with 2.0 Prolene and 3.0 Prolene in Vertical mattress and Simple interrupted suture technique. Upon completion of the procedure, the plantar incision was dressed with adaptic, 4x4 gauze, kerlix and coban. The pneumatic ankle tourniquet was then deflated and a prompt hyperemic response was noted to all digits of the affected foot. A CAM Walker boot was then applied. The patient did very well with the procedure and the anesthesia. The patient was transferred to the recovery room with vital signs stable and vascular status intact to all toes of the affected foot. Following a period of postoperative monitoring, the patient will be discharged home on the following written and oral postoperative instructions: 1. The patient should keep the dressing clean, dry, and intact. Use a cast protector bag with showers. 2. The patient will be non weight bearing with a knee scooter for one week followed by two weeks of protected weight bearing with CAM walker boot. 3. Patient should ice and elevate the affected foot when at rest. 4. The patient is to contact Dr. Newman for all postop care and if any problems arise. 5. Prescriptions were written for Percocet 5/325 dispensed 40 to be taken 1 p.o. q.4-6 hours as needed for severe pain. . Estimated Blood Loss 1 Drains No Packing No Pathology None sent Complications No immediate complications Condition Stable Disposition Same day
[2025-04-27 12:11] VITALS: BP 144/90; PULSE 68; RESP 16; O2SAT 100
[2025-04-27 12:39] VITALS: BP 162/78; PULSE 63; RESP 16
[2025-04-27] MEDS: oxyCODONE HCL (*CRX) 5 MG TAB IR PO (12:48)
[2025-04-27 13:10] VITALS: BP 157/88; PULSE 58; RESP 16
[2025-04-27 13:26] VITALS: BP 153/87; PULSE 61; RESP 16
== END 2025-04-27 13:40 | disposition home or self-care (01) ==
PROVIDERS: PCP Nurse Practitioner Family; Visit Provider Podiatrist Foot & Ankle Surgery
PROC: (CPT 28750; principal; 2025-04-27 11:30)
DX: M72.2 Plantar fascial fibromatosis (principal); M77.31 Calcaneal spur, right foot; R01.1 Cardiac murmur, unspecified; F32.A Depression, unspecified; F41.9 Anxiety disorder, unspecified; E53.8 Deficiency of other specified B group vitamins; Z79.891 Long term (current) use of opiate analgesic; Z98.890 Other specified postprocedural states; Z86.0100 Personal history of colon polyps, unspecified; Z80.8 Family history of malignant neoplasm of other organs or systems; Z80.3 Family history of malignant neoplasm of breast; Z82.49 Family history of ischemic heart disease and other diseases of the circulatory system
CPT/HCPCS: 28060; J0690; A9270; J2003; J2250; J2704; J3010; J7120

== ENCOUNTER 2025-05-02 09:45 | Outpatient (CLI) | payer BC, SELFPAY ==
--- NOTE | ~2025-05-02 | US_ITS ---
EXAMINATION: US soft tissue head and neck, 05/02/2025 9:49 CDT HISTORY: R22.1 - Localized swelling, mass and lump, neck Comparison: None Technique: Diego-scale and color Doppler images were obtained FINDINGS: Right lobe measures 4.5 x 3.1 x 2 cm and is replaced by a large complex solid nodule 3.7 x 3 x 2 cm, TR 4.0. No areas of increased flow Left lobe measures 2.5 x 1.3 x 1 cm, no nodules identified. No increased flow Isthmus 1.6 mm. IMPRESSION: Large right thyroid nodule. Ultrasound-guided tissue sampling is suggested Reviewed, dictated and finalized at location P. IMPRESSION: Large right thyroid nodule. Ultrasound-guided tissue sampling is fields ggested
--- OUTSIDE RECORDS SUMMARY | 2025-05-02 11:07 | XMS_ITS | Clinical Summary ---
Author Organization [facility] Address [facility] [place] [address] Care Team Providers Care Tank Inspector Name Role Phone Sidney Holman MD Primary Care Provider [phone] Allergies No known active allergies Medications ergocalciferol (VITAMIN D2) 50,000 unit capsule take 1 capsule by oral route every week 0 0 02/21/2015 Active amLODIPine (NORVASC) 5 mg tablet 05/29/2019 Active amLODIPine (NORVASC) 5 mg tablet Take 5 mg by mouth daily 09/03/2020 Active cholecalciferol (VITAMIN D-3) 50,000 unit capsule TAKE 1 CAPSULE BY MOUTH WEEKLY 08/31/2020 Active escitalopram (LEXAPRO) 10 mg tablet 07/24/2020 Active escitalopram (LEXAPRO) 10 mg tablet Take 10 mg by mouth daily 08/24/2020 Active Active Problems Problem Noted Date Diagnosed Date Abnormal findings on diagnostic imaging of breas t 11/04/2020 Surgical History Surgery Date Site/Laterality Comments HYSTERECTOMY BREAST BIOPSY 11/06/2020 Left Medical History Medical History Date Comments Hx Other Medical Ovorian Cyst 19 90 Hx Other Medical Hysterectomy 19 97 Family History Medical History Relation Name Comments Hypertension Other Family history of Hypertension; Relation Name Status Comments Other Social History Tobacco Use Types Packs/Day Years Used Date Smoking Tobacco: Never Comments Unknown Sex and Gender Information Value Date Recorded Sex Assigned at Not on file Legal Sex Female 3:46 AM SALES OPERATIONS DIRECTOR Gender Identity Female 11/04/2020 8:02 AM CDT Sexual Orientation Not on file Obstetrics History Last Filed Vital Signs Vital Sign Reading Time Taken Comments Blood Pressure 158/105 07/30/2016 7:34 AM SALES OPERATIONS DIRECTOR Pulse 73 07/30/2016 7:34 AM SALES OPERATIONS DIRECTOR Temperature - - Respiratory Rate - - Oxygen Saturation - - Inhaled Oxygen Concentration - - Weight 63.5 kg (140 lb) 11/04/2020 8:06 AM CDT Height 162.6 cm (5' 4) 11/04/2020 8:06 AM CDT Body Mass Index 24.03 11/04/2020 8:06 AM CDT Plan of Treatment Not on file Insurance [employer] [place] [employer] [place] Care Teams Tank Inspector Relationship Specialty Start Date End Date Sidney Holman MD [address] [address] PCP - General Family Medicine 10/22/20
--- OUTSIDE RECORDS SUMMARY | 2025-05-02 11:07 | XMS_ITS | Clinical Summary ---
Author Organization [facility] Address [address] [place] [address] Care Team Providers Care Blowing Engineer Name Role Phone David Moyer MD Primary Care Provider [phone] Source Comments [facility],non-owned Affiliates and Associated Physician Practices is amultiple site organization consisting of ambulatory clinics and hospital sitesin [place], [place], [place] and [place]. This disclosure is being madepursuant to the Care Everywhere program and may not contain all information available regarding this patient. Last updated 18.[facility] Active Problems Problem Noted Date Diagnosed Date Other specified abnormal immunological findings in serum 12/06/2014 Urticaria due to cold and heat 12/06/2014 Raynaud's syndrome without gangrene 11/08/2014 Family History Medical History Relation Name Comments Asthma Brother Hypertension Father Status: Alive None Known Maternal Grandfather Status: Arthritis - Rheumatoid Maternal Grandmother Status: Cancer Maternal Grandmother breast with mets to bone Diabetes Maternal Uncle Hypertension Mother Status: Alive None Known Paternal Grandfather Status: Diabetes Paternal Grandmother Status: Relation Name Status Comments Brother Father Maternal Grandfather Maternal Grandmother Maternal Uncle Mother Paternal Grandfather Paternal Grandmother Social History Tobacco Use Types Packs/Day Years Used Date Smoking Tobacco: Never Smokeless Tobacco: Never Alcohol Use Standard Drinks/Week Comments Yes 1.7 (1 standard drink = 0.6 oz p ure alcohol) Comments Unknown Sex and Gender Information Value Date Recorded Sex Assigned at Not on file Legal Sex Female 6:17 PM ULTRASOUND TESTER Gender Identity Not on file Sexual Orientation Not on file Last Filed Vital Signs Vital Sign Reading Time Taken Comments Blood Pressure 130/80 12/06/2014 8:05 AM CDT Pulse 62 12/06/2014 8:05 AM CDT Temperature 36.7 C (98 F) 12/06/2014 8:05 AM CDT Respiratory Rate 16 12/06/2014 8:05 AM CDT Oxygen Saturation - - Inhaled Oxygen Concentration - - Weight 64.9 kg (143 lb) 12/06/2014 8:05 AM CDT Height 163.8 cm (5' 4.5) 12/06/2014 8:05 AM CDT Body Mass Index 24.17 12/06/2014 8:05 AM CDT Plan of Treatment Upcoming Encounters Date Type Department Care Team (Late st Contact Info) Description 07/18/2025 9:15 AM ULTRASOUND TESTER Office Visit [facility] [address] [place] [address] Racheal Lynch MD [address] [facility] [address] [place] [address] Health Maintenance Due Date Last Done Comments COLOGUARD (AGES 45-75) - COLON CA SCREENING 1972 COLON MONITORING 1972 COLONOSCOPY - COLON CA SCREENING 1972 CT COLONOGRAPHY - COLON CA SCREENING 1972 Colorectal Cancer Screening 1972 FIT - COLON CA SCREENING 1972 FLEX SIG - COLON CA SCREENING 1972 MAMMOGRAM 1972 HIV SCREENING 1987 HEPATITIS C SCREENING 04/09/1990 DTAP/TDAP/TD VACCINES (1 - Tdap) 1991 HEPATITIS B VACCINE (1 of 3 - 19+ 3-dose series) 1991 LIPID TESTING 11/10/2019 11/09/2014 PNEUMOCOCCAL VACCINE 50+ (1 of 1 - PCV) 2022 ZOSTER VACCINE (1 of 2) 2022 DEPRESSION SCREENING 07/19/2024 INFLUENZA VACCINE (#1) 2025 COVID-19 VACCINE Completed 05/27/2024, 11/2021, 08/12/2021, Additional history exists HIB VACCINE Aged Out No longer eligi ble based on patient's age to complete this topic HPV VACCINE Aged Out No longer eligi ble based on patient's age to complete this topic MENINGOCOCCAL (Group B) VACCINE SHARED DECISION-MAKING Aged Out No longer eligible based on patient's age to complete this topic MENINGOCOCCAL GROUPS A/C/Y/W VACCINE Aged Out No longer eligible based on patient's age to complete this topic Procedures Procedure Name Priority Date/Time Associated Diagnosis Comments LIPID PROFILE Routine 11/09/2014 8:19 AM CDT from Last 3 Months or Most Recently Relevant to Health Maintenance Results * (ABNORMAL) LIPID PROFILE (11/09/2014 8:19 AM CDT) Cholesterol Total 209(H) 125 - 200 mg/dL [facility] HDL 98 > OR = 46 mg/dL [facility] Triglycerides 61 <150 mg/dL [facility] LDL Calculated 99 <130 mg/dL (calc) [facility] Comment: Desirable range <100 mg/dL for patients with CHD or diabetes and <70 mg/dL for diabetic patients with known heart disease. Chol/HDL Ratio 2.1 < OR = 5.0 (calc) [facility] Non HDL Cholesterol 111 mg/dL (calc) [facility] Comment: Target for non-HDL cholesterol is 30 mg/dL higher than LDL cholesterol target. REPORT COMMENT: FASTING:YES Test Performed at: [facility] [address] [place] [address] LENIN COLEMAN DO,MPH Blood specimen (specimen) BLOOD SPECIMEN / Unknown 11/09/2014 8:19 AM CDT 11/09/2014 8:20 AM CDT us Miguel Boss MD LAB - CHEMISTRY ORDERABLES Final Result [facility] [id number] [place], [place] [id number] [place] [address] from Last 3 Months or Most Recently Relevant to Health Maintenance Insurance [facility] Care Teams Blowing Engineer Relationship Specialty Start Date End Date David Moyer MD [address] [place] [address] PCP - General 11/08/14
--- OUTSIDE RECORDS SUMMARY | 2025-05-02 11:07 | XMS_ITS | Clinical Summary ---
Author Organization [facility] Address [address] [place] [address] Phone Care Team Providers Care Butcher Or Smallgoods Maker Name Role Phone Unavailable Primary Care Provider Unavailabl e Allergies No known active allergies Medications amLODIPine (NORVASC) 5 mg tablet 05/29/2019 Active VITAMIN D2 50,000 unit capsule 05/29/2019 Active Active Problems Patient Care Coordination No te Formatting of this note migh t be different from the original. Primary Care: No primary care provider on file. Referring Provider: Tracie Gr MD [address] [address] Other: No known active problems Family History Medical History Relation Name Comments Breast Cancer Maternal Grandmother Relation Name Status Comments Maternal Grandmother Social History Tobacco Use Types Packs/Day Years Used Date Smoking Tobacco: Never Smokeless Tobacco: Never Alcohol Use Standard Drinks/Week Comments Yes 0 (1 standard drink = 0.6 oz pur e alcohol) moderate Comments No Sex and Gender Information Value Date Recorded Sex Assigned at Not on file Legal Sex Female 2:45 PM CDT Gender Identity Not on file Sexual Orientation Not on file Last Filed Vital Signs Vital Sign Reading Time Taken Comments Blood Pressure - - Pulse - - Temperature - - Respiratory Rate - - Oxygen Saturation - - Inhaled Oxygen Concentration - - Weight 65.3 kg (144 lb) 05/30/2019 3:00 PM [employer] [employer] Height 163.8 cm (5' 4.5) 05/30/2019 3:00 PM [employer] [employer] Body Mass Index 24.34 05/30/2019 3:00 PM [employer] [employer] Plan of Treatment Health Maintenance Due Date Last Done Comments DTAP/TDAP/TD VACCINES (1 - Tdap) 1991 HEPATITIS B VACCINES (1 of 3 - 19+ 3-dose series) 1991 HPV/Cotest (21-29) 1993 CERVICAL CANCER SCREENING 2002 HPV/Cotest (30-65) 2002 PAP SMEAR 2002 COLORECTAL SCREENING 2017 Colorectal Cancer Screening 2017 FIT-DNA Q 3 years 2017 FIT/FOBT Q 1 year 2017 Flex Sig/CT Colonography Q 5 years 2017 BREAST CANCER SCREENING 11/06/2021 11/07/19 21, 11/06/2020, 10/21/2020, Additional history exists ZOSTER VACCINE (1 of 2) 2022 INFLUENZA VACCINE (#1) 2025 Insurance [employer] CHOICE
== END 2025-05-02 09:46 | disposition home or self-care (01) ==
LOC: CHSIMG 09:45
PROVIDERS: PCP Nurse Practitioner Family; Visit Provider Nurse Practitioner Family
DX: R22.1 Localized swelling, mass and lump, neck (principal); E04.1 Nontoxic single thyroid nodule
CPT/HCPCS: 76536